=== PATIENT | female | born 1960 | race Caucasian/White ===

== ENCOUNTER → 2016-10-12 | Day surgery (SDC) | payer OTHER ==
[~2016-10-12] VITALS: Ht 160 cm; Wt 84.4 kg
[~2016-10-12] MED LIST: ACIPHEX20 MG PO; ADVAIR 500/501 E1 INH; CLARITIN10 MG PO; COREG CR10 MG PO; COREG CR20 MG PO; EFFEXOR100 MG PO; EFFEXOR75 MG PO; LIPITOR20 MG PO; LISINOPRIL5 MG PO; METFORMIN500 MG PO; NORCO 325 MG-51 TAB PO; OMNICEF300 MG PO; PEPCID AC20 MG PO; PROVENTIL0.09 MG/A1 IH; RITALIN5 MG PO; SYMBICORT1 AE1 INH; VICODIN 5/500 505 MG PO; ZOLOFT100 MG PO; ZOLOFT50 MG PO
--- NOTE | ~2016-10-12 | O ---
[place], [place] OPERATIVE NOTE NAME: JASWINDER BANEGAS UNIT #: [id number] ROOM: DOCTOR[facility] B[facility] [birth year] DOS: HISTORY OF PRESENT ILLNESS: A 56-year-old patient who presented with chief complaint of dyspepsia, history of colonic screening. PLAN: The patient with chronic PPI therapy for years, on Aciphex. ALLERGIES: SULFA AND ASPIRIN. FAMILY HISTORY: Noncontributory. PAST SURGICAL HISTORY: Gallbladder and D and C. PAST MEDICAL HISTORY: Asthma, depression, hypertension. SOCIAL HISTORY: Nonsmoker, nonalcohol consumer. PROCEDURE: Today's procedure part of investigation is panendoscopy and colonoscopy. PREMEDICATION: Versed and Diprivan. SCOPE: Olympus forward-viewing gastroscope Q10 video. REPORT: After putting the patient in the left lateral position and after application of lubricant to the scope, the scope was introduced. Thereafter, under direct visualization, I advanced through the length of esophagus without difficulty. Small hiatal hernia was noticed. Gastric pouch was entered. Gastritis was seen. Antrum was biopsied for H. pylori. Duodenal bulb, second and third part within normal limits. The patient extubated, tolerated procedure well. IMPRESSION: Small hiatal hernia, gastritis, status post biopsy. PLAN AND DISCUSSION: I am going to proceed with colonoscopy. GASTROENDOSCOPIC REPORT: A 56-year-old patient who is undergoing a colonic screening today. PROCEDURE: Today's procedure part of investigation is colonoscopy plus polypectomy of the sessile polypoid lesion of cecum. PREMEDICATION: Versed and Diprivan. SCOPE: Olympus folding colonoscope 10L video. REPORT: After putting the patient in the left lateral position and after application of lubricant to the scope, the scope was introduced. Thereafter, under direct visualization, I advanced through the length of colon without [place], [place] OPERATIVE NOTE NAME: JASWINDER BANEGAS UNIT #: [id number] ROOM: DOCTOR: [facility]AYLIN [facility]ILMAN [facility] BIRTH[facility]: [birth year] difficulty. Base of the cecum explored, appendiceal orifice identified, and ileocecal valve was defined. Scope was gradually withdrawn slightly proximally and re-introduced sessile polypoid lesion and cecum was exposed and sessile polypectomy was removed. The patient extubated, tolerated procedure well. IMPRESSION: sessile colonic polyp at the cecum, status post piecemeal polypectomy. PLAN AND DISCUSSION: High fiber fruit diet, activity ad yong. FOLLOWUP: Routinely with you in office, p.r.n. visit with us in GI Clinic. I thank you very much indeed for your kind referral. As far as the upper GI finding is concerned, we are going to considering to switching care from Aciphex to famotidine 20 mg b.i.d. for 1 week and thereafter to 1 at bedtime to see if she would tolerate. ZAYNAB GILMAN MD CM:OPRECORD:OPERATIVE NOTE [id number] ZAYNAB GILMAN MD 10/12/16 1359 interface
[2016-10-12 09:00] VITALS: BP 120/64
[2016-10-12 10:40] VITALS: BP 86/59
[2016-10-12 10:55] VITALS: BP 101/41
[2016-10-12 11:10] VITALS: BP 119/63
== END | disposition home or self-care (01) ==
LOC: SDC 10-11 08:45
DX: Z12.11 Encounter for screening for malignant neoplasm of colon (principal); D12.0 Benign neoplasm of cecum; K29.50 Unspecified chronic gastritis without bleeding; K44.9 Diaphragmatic hernia without obstruction or gangrene; J45.909 Unspecified asthma, uncomplicated; I10 Essential (primary) hypertension; E11.9 Type 2 diabetes mellitus without complications; F32.9 Major depressive disorder, single episode, unspecified; Z98.890 Other specified postprocedural states; K21.9 Gastro-esophageal reflux disease without esophagitis; F41.9 Anxiety disorder, unspecified; Z82.49 Family history of ischemic heart disease and other diseases of the circulatory system; Z83.3 Family history of diabetes mellitus; Z98.51 Tubal ligation status

== ENCOUNTER → 2019-05-21 | Outpatient (CLI) | payer BC | END | disposition home or self-care (01) | LOC: LAB 02:10 | DX: R19.7 Diarrhea, unspecified (principal) ==

== ENCOUNTER → 2019-06-14 | Outpatient (CLI) | payer BC | END | disposition home or self-care (01) | LOC: LAB 09:48 | DX: R19.7 Diarrhea, unspecified (principal) ==

== ENCOUNTER → 2019-07-27 | Outpatient (CLI) | payer BC | END | disposition home or self-care (01) | LOC: LAB 07-27 09:36 | DX: R19.7 Diarrhea, unspecified (principal) ==

== ENCOUNTER 2019-10-07 02:42 | Inpatient (IN) | payer BC ==
[2019-10-07] VITALS (8 sets, daily range): BP systolic 94–140; BP diastolic 55–70
[~2019-10-07] VITALS: Ht 160 cm; Wt 85.8 kg
[2019-10-07 03:14] LABS: BASO # 0.1 10*3/uL (0.0-0.1); BASO % 0.5 % (0.0-1.0); EOS # 0.1 10*3/uL (0.0-0.4); EOS % 0.5 % (1.0-4.0); HEMATOCRIT 41.3 % (37.0-47.0); LYMPH # 2.6 10*3/uL (1.3-4.4); LYMPH % 25.4 % (27.0-41.0); MEAN CELL VOLUME 88.8 fl (81.0-99.0); MEAN CORPUSCULAR HGB 29.2 pg (27.0-31.0); MEAN CORPUSCULAR HGB CONC 32.9 g/dl (33.0-37.0); MONO # 0.6 10*3/uL (0.1-1.0); MONO % 5.8 % (3.0-9.0); NEUT % 67.5 % (47.0-73.0); PLATELET COUNT AUTOMATED 288 10*3/uL (130-400); RED BLOOD COUNT 4.65 10*6/uL (4.10-5.10); RED CELL DISTRI WIDTH 13.9 % (0-14.5); WHITE BLOOD COUNT 10.4 10*3/uL (4.8-10.8)
[2019-10-07 03:31] LABS: ACT PARTIAL THROMBO TIME 26.6 SECONDS (20.0-32.1); INTERNATIONAL NORM RATIO 0.9 (2.0-3.5)
[2019-10-07 03:35] LABS: ALBUMIN 3.1 gm/dl (3.1-4.5); ALKALINE PHOSPHATASE 81 U/L (45-117); BUN 13 mg/dl (7-24); CHLORIDE 108 mmol/L (98-107); CREATININE 0.78 mg/dL (0.55-1.02); POTASSIUM 3.9 mmol/L (3.5-5.1); SGOT/AST 19 IU/L (3-35); SGPT/ALT 30 U/L (12-78); SODIUM 141 mmol/L (136-145); TOTAL PROTEIN 6.6 gm/dL (6.4-8.2)
[2019-10-07 03:39] LABS: TROPONIN I < 0.015 ng/ml (<0.045)
[2019-10-07] MEDS ORDERED: VENT7GM INH (05:42)
[2019-10-07] MEDS ORDERED: 24 HOUR ALLER15.8 ML NAS (05:43)
[2019-10-07] MEDS ORDERED: DRIZALMA SPRINK60 MG PO (05:44)
[2019-10-07] MEDS ORDERED: XANAX0.25 MG PO (05:44)
[2019-10-07] MEDS ORDERED: XYZAL5 M1 PO (05:45)
[2019-10-07] MEDS ORDERED: ZETIA10 MG PO (05:46)
[2019-10-07] MEDS ORDERED: ALLZITAL 25-321 EACH PO (05:46)
[2019-10-07] MEDS ORDERED: OMEPRAZOLE MAGN20 MG PO (05:47)
--- NOTE | 2019-10-07 06:02 | NUR ---
DR. SANTACRUZ'S ANSWERING SERVICE NOTIFIED OF CONSUSLT.
--- NOTE | 2019-10-07 06:08 | NUR ---
A 59, admitted to [facility], under the services of SHARI Parry MD with a diagnosis of CHEST PAIN. Chief complaint is CHEST PAIN. Patient arrived via stretcher from ER. Monitor applied. Initial assessment completed. Vital signs taken and recorded. SHARI PARRY MD notified of admission to the unit. Orders received. See assessment for past medical history, medications and allergies. Patient and/or family oriented to unit. [facility] visitation policy reviewed. Clothing/patient valuable form completed. ALFONSO GOLDSMITH
[2019-10-07 07:04] LABS: CHOLESTEROL 166 mg/dL (<200); HDL CHOLESTEROL 44 mg/dl (40-60); LDL CHOLESTEROL 95 mg/dL (9-159); TRIGLYCERIDES 133 mg/dl (<150); VLDL CHOLESTEROL 27 mg/dL (6-40)
--- NOTE | 2019-10-07 15:13 | NUR ---
[employer] in to talk to patient. Patient states lives at home with her fiance. There are 15 steps in the home. Physician: Dr. Vito Dias Pharmacy: [facility] in [place] Home health services: none Patient's level of ADLs: INDEPENDENT Patient has working utilities: yes DME: none Follow-up physician's appointment after d/c: she prefers to make her own follow up appt after discharge Does patient want to access PORTAL?: no Discharge plan discussed with patient. She lives at home with her fiance. She is independent in her ADLs and ambulation. Discussed home health care services and she denies any home needs at this time. When medically stable she will be discharged to home. She states her fiance will provide transportation on discharge. ANTOLIN LOVE
--- NOTE | 2019-10-07 19:50 | NUR ---
PATIENT RESTING IN BED WITH NO C/O CHEST PAIN. VITALS STABLE. ASSESSMENT NEGATIVE.
[2019-10-08] VITALS: BP 95/53
--- NOTE | 2019-10-08 00:15 | NUR ---
NITRO-BID PASTE NOT ADMINISTERED AT HIS TIME. PATIENTS BP 95/53. OLD NITRO PATCH REMOVED. PATIENT DOES NOT COPMLAIN OF ANY CHEST PAIN OR DISCOMFORT. WILL CONTINUE TO MONITOR
--- NOTE | 2019-10-08 05:25 | NUR ---
NO IVERT DISTRES NOTED. RESP ARE EASY AND REGULAR ON ROOM AIR. HRR IN THE 70'S, NSR. BED IS LOCKED IN LOWEST POSITION, CALL LIGHT WITHIN REACH
--- NOTE | 2019-10-08 05:56 | NUR ---
24 HR chart check completed.
--- NOTE | 2019-10-08 06:26 | NUR ---
PATIENTS BP IS 115/65 PATIENT IS NOT HAVING ANY CHEST PAIN/PRESSURE. NITRO-BID NOT GIVEN AT THIS TIME.
--- NOTE | 2019-10-08 07:30 | NUR ---
DR. GALVAN IS ROUNDING.
[2019-10-08 08:00] VITALS: BP 119/56
--- NOTE | 2019-10-08 08:00 | NUR ---
PATIENT TO BE DISCHARGED AFTER STRESS TEST. DR. HERNANDEZ CONSULT.
--- NOTE | 2019-10-08 09:19 | NUR ---
PATIENT TAKEN DOWN TO CARDIAC REHAB.
--- NOTE | 2019-10-08 10:00 | NUR ---
INFORMED CONSENT OBTAINED FOR LEXISCAN NUCLEAR STRESS TEST WITH DR. ROBERSON. RESTING EKG NSR WITH A RESTING HR OF 77 WITH BP OF 112/70. LUNGS CLEAR WITH SPO2 OF 100% ON ROOM AIR. PT COMPLETED A 1:00 LEXISCAN PROTOCOL RECEIVING LEXISCAN 0.4 MG IV OVER 10 SECONDS. HAD NO CHEST PAIN OR ANY EKG CHANGES. HAD C/O "ODD FEELING" THAT SUBSIDED IN RECOVERY. HAD A PEAK HR OF 108 WITH BP OF 106/58. LAST RECOVERY HR OF 99 WITH BP OF 116/60. AWAITING SCANNING IN STABLE CONDITION.
[2019-10-08 12:00] VITALS: BP 132/74
--- NOTE | 2019-10-08 12:00 | NUR ---
PATIENT IS BACK FROM CARDIAC REHAB AWAITING LUNCH. DENIES CHEST PAIN,NSR,BP 132/74.
--- NOTE | 2019-10-08 13:46 | NUR ---
NOTIFIED DR. HERNANDEZ OF LAB RESULT. OK FOR DISCHARGE FROM HIS STANDPOINT, F/U OUT PATIENT.
--- NOTE | 2019-10-08 14:12 | NUR ---
PATIENT DISCHARGED TO HOME. STRESS TEST NEGATIVE.
== END 2019-10-08 14:12 | disposition home or self-care (01) | DRG 313 ==
LOC: ED 02:42 → ICCU 03:43 → EDHOLD 03:43 → ICCU 05:10
PROVIDERS: Emergency Medicine; ADMIT Internal Medicine
PROC: 3E073KZ Introduction of Other Diagnostic Substance into Coronary Artery, Percutaneous Approach (ICD-10-PCS; principal; 2019-10-08)
PROC: 4A02XM4 Measurement of Cardiac Total Activity, External Approach (ICD-10-PCS; principal; 2019-10-08)
DX: R07.2 Precordial pain (principal); J98.11 Atelectasis; R07.81 Pleurodynia; I10 Essential (primary) hypertension; E78.2 Mixed hyperlipidemia; D86.9 Sarcoidosis, unspecified; F32.9 Major depressive disorder, single episode, unspecified; K21.9 Gastro-esophageal reflux disease without esophagitis; E66.8 Other obesity; R05 Cough; J45.909 Unspecified asthma, uncomplicated; Z82.49 Family history of ischemic heart disease and other diseases of the circulatory system; Z88.2 Allergy status to sulfonamides; Z88.6 Allergy status to analgesic agent; Z98.51 Tubal ligation status; Z90.49 Acquired absence of other specified parts of digestive tract; Z98.49 Cataract extraction status, unspecified eye; Z83.3 Family history of diabetes mellitus

== ENCOUNTER → 2019-12-24 | Outpatient (CLI) | payer BC ==
[~2019-12-24] MED LIST changes: +24 HOUR ALLER15.8 ML NAS; +ALLZITAL 25-321 EACH PO; +DRIZALMA SPRINK60 MG PO; +OMEPRAZOLE MAGN20 MG PO; +VENT7GM INH; +XANAX0.25 MG PO; +XYZAL5 M1 PO; +ZETIA10 MG PO
== END | disposition home or self-care (01) ==
LOC: COVID19 14:45
DX: R05 Cough (principal); Z20.828 Contact with and (suspected) exposure to other viral communicable diseases

== ENCOUNTER → 2020-05-06 | Outpatient (CLI) | payer BC | END | disposition home or self-care (01) | LOC: COVID19 09:18 | PROVIDERS: ATTEND Nurse Practitioner Family | DX: U07.1 COVID-19 (principal) ==

== ENCOUNTER → 2020-07-01 | Outpatient (CLI) | payer BC | END | disposition home or self-care (01) | LOC: RAD 16:58 | PROVIDERS: ATTEND Nurse Practitioner Family | DX: R05 Cough (principal); R06.02 Shortness of breath; R06.2 Wheezing; Z86.16 Personal history of COVID-19 ==

== ENCOUNTER → 2021-03-25 | Outpatient (CLI) | payer BC | END | disposition home or self-care (01) | LOC: RAD 09:29 | PROVIDERS: ATTEND Nurse Practitioner Family | DX: R05.9 Cough, unspecified (principal); R06.2 Wheezing; E11.9 Type 2 diabetes mellitus without complications; R09.81 Nasal congestion ==

== ENCOUNTER → 2021-12-01 | Outpatient (CLI) | payer OTHER | END | disposition home or self-care (01) | LOC: RAD 11:22 | PROVIDERS: ATTEND Nurse Practitioner Family | DX: M25.511 Pain in right shoulder (principal) ==

== ENCOUNTER 2022-01-10 12:43 | Inpatient (IN) | payer OTHER ==
[~2022-01-10] VITALS: Ht 161.2 cm; Wt 88.9 kg
[2022-01-10 12:54] VITALS: BP 154/68
[2022-01-10 13:39] LABS: BASO % 0.4 % (0.0-1.0); EOS # 0.1 10*3/uL (0.0-0.4); EOS % 0.5 % (1.0-4.0); HEMATOCRIT 42.9 % (37.0-47.0); LYMPH # 2.6 10*3/uL (1.3-4.4); LYMPH % 27.4 % (27.0-41.0); MEAN CELL VOLUME 90.1 fl (81.0-99.0); MEAN CORPUSCULAR HGB 29.4 pg (27.0-31.0); MEAN CORPUSCULAR HGB CONC 32.6 g/dl (33.0-37.0); MEAN PLATELET VOLUME 10.1 fl (9.6-12.3); MONO # 0.5 10*3/uL (0.1-1.0); MONO % 4.9 % (3.0-9.0); NEUT # 6.4 10*3/uL (2.3-7.9); NEUT % 66.6 % (47.0-73.0); PLATELET COUNT AUTOMATED 300 10*3/uL (130-400); RED BLOOD COUNT 4.76 10*6/uL (4.10-5.10); RED CELL DISTRI WIDTH 13.6 % (0-14.5); WHITE BLOOD COUNT 9.6 10*3/uL (4.8-10.8)
[2022-01-10 13:55] LABS: ACETAMINOPHEN (TYLENOL) < 5.0 ug/ml (10-30); ETHYL ALCOHOL < 3.0 mg/dl (<3)
[2022-01-10 13:57] LABS: ALKALINE PHOSPHATASE 89 U/L (45-117); BUN 10 mg/dl (7-24); CHLORIDE 109 mmol/L (98-107); POTASSIUM 3.6 mmol/L (3.5-5.1); SGOT/AST 14 IU/L (3-35); SGPT/ALT 23 U/L (12-78); SODIUM 140 mmol/L (136-145); TOTAL PROTEIN 7.1 gm/dL (6.4-8.2)
[2022-01-10 13:58] LABS: BILIRUBIN Negative (Negative); BLOOD Negative (Negative); CLARITY Clear (Clear); COLOR Dark Yellow (Yellow); GLUCOSE Negative (Negative); KETONE Trace (Negative); LEUKO ESTERASE 2+ (Negative); NITRITE Negative (Negative)
[2022-01-10 14:07] LABS: URINE AMPHETAMINES < 1000 (1000ng/ml); URINE BARBITURATES < 200 (200ng/ml); URINE BENZODIAZEPINES < 200 (200ng/ml); URINE CANNABINOIDS (THC) < 50 (50ng/ml); URINE COCAINE < 300 (300ng/ml); URINE METHADONE < 300 (300ng/ml); URINE OPIATES < 300 (300ng/ml); URINE PHENCYCLIDINE < 25 (25ng/ml)
[2022-01-10] MEDS ORDERED: TRELEGY ELLIPT1 EAC1 INH (14:07)
[2022-01-10 14:08] LABS: BACTERIA 2+
[2022-01-10] MEDS ORDERED: GLIPIZIDE5 MG PO (14:08)
[2022-01-10 14:09] LABS: WBC 16-20 wbc/hpf (0-5)
[2022-01-10] MEDS ORDERED: BUSPAR15 MG PO (14:09)
[2022-01-10] MEDS ORDERED: VALACYCLOVIR500 M1 PO (14:09)
[2022-01-10] MEDS ORDERED: CLONAZEPAM0.5 M2 PO (14:10)
[2022-01-10] MEDS ORDERED: REXULTI2 MG PO (14:10)
[2022-01-10 18:57] VITALS: BP 128/79
[2022-01-10 18:59] VITALS: BP 128/79
[2022-01-10 20:08] VITALS: BP 128/79
[2022-01-11 06:52] LABS: THYROID STIM HORMONE (HS) 2.67 uIU/ml (0.358-4.75)
[2022-01-11 07:18] VITALS: BP 132/84
[2022-01-11 08:28] LABS: VITAMIN D, 25-HYDROXY 55.6 ng/mL (30-100)
[2022-01-11 20:00] VITALS: BP 141/59
[2022-01-12 07:43] VITALS: BP 118/62
[2022-01-12 20:00] VITALS: BP 118/56
[2022-01-13 08:00] VITALS: BP 141/65
[2022-01-13 20:00] VITALS: BP 123/56
[2022-01-14 06:59] VITALS: BP 129/71
[2022-01-14 20:00] VITALS: BP 138/77
[2022-01-15 06:58] VITALS: BP 117/67
[2022-01-15 20:00] VITALS: BP 126/68
[2022-01-16 07:45] VITALS: BP 122/69
[2022-01-16 20:00] VITALS: BP 128/73
[2022-01-17 07:48] VITALS: BP 131/73
[2022-01-17] MEDS ORDERED: CLONAZEPAM1 MG PO (09:42)
[2022-01-17] MEDS ORDERED: DULOXETINE HCL30 MG PO (09:42)
[2022-01-17] MEDS ORDERED: ARIPIPRAZOLE5 MG PO (09:42)
== END 2022-01-17 12:10 | disposition home or self-care (01) | DRG 885 ==
LOC: ED 12:43 → 3N 18:05
PROVIDERS: Counselor Professional; Emergency Medicine; ADMIT Psychiatry & Neurology Psychiatry; ATTEND Psychiatry & Neurology Psychiatry
DX: F33.2 Major depressive disorder, recurrent severe without psychotic features (principal); E11.65 Type 2 diabetes mellitus with hyperglycemia; E44.0 Moderate protein-calorie malnutrition; N39.0 Urinary tract infection, site not specified; J44.9 Chronic obstructive pulmonary disease, unspecified; F41.9 Anxiety disorder, unspecified; Z20.822 Contact with and (suspected) exposure to COVID-19; I10 Essential (primary) hypertension; E66.9 Obesity, unspecified; J30.1 Allergic rhinitis due to pollen; E78.5 Hyperlipidemia, unspecified; M75.01 Adhesive capsulitis of right shoulder; E87.8 Other disorders of electrolyte and fluid balance, not elsewhere classified; Z79.899 Other long term (current) drug therapy; Z88.2 Allergy status to sulfonamides; Z88.8 Allergy status to other drugs, medicaments and biological substances; Z68.34 Body mass index [BMI] 34.0-34.9, adult